=== PATIENT | male | born 1995 | race Caucasian/White ===

== ENCOUNTER 2017-02-17 20:31 | Emergency (ER) | payer BC, MEDICAID ==
[2017-02-17 22:47] VITALS: BP 125/79
--- NOTE | 2017-02-17 23:00 | EDM.PDOC ---
ED HPI GENERAL MEDICAL PROBLEM - General Chief Complaint: Bite:Animal, Insect Stated Complaint: DOG BITE HANDS Time Seen by Provider: 02/17/17 22:42 Source of Information: Reports: Patient, RN Notes Reviewed History Limitations: Reports: No Limitations - History of Present Illness INITIAL COMMENTS - FREE TEXT/NARRATIVE: Here with his girlfriend Chief complaint Dog bites to right hand History of present illness 21-year-old male who together with his girlfriend have a 5-year-old dog. He is 10 pounds, although he's not up-to-date with his immunizations he's not know to her dog does not have any exposure to wild animals. He always has been resistant to being extracted when he's hiding. Today he went under the bed, patient moves the bed to extract the bed to take him outside but the dog ended up biting him in the right hand. This occurred about 11 AM but he's had increasing pain and swelling and this prompted come to emergency because of concerns about infection. Last tetanus booster was a year ago. He works installing insulation Bilateral Hand Pain Score (Numeric/FACES): 4 - Related Data Allergies Allergy/AdvReac Type Severity Reaction Status Date / Time No Known Allergies Allergy Verified 02/17/17 22:36 Home Meds: Home Meds Amoxicillin/Potassium Clav [Augmentin 875-125 Tablet] 1 each PO BID #14 tablet 02/17/17 [Rx] PARoxetine HCl [Paxil] 20 mg PO DAILY 02/17/17 [History] Past Medical History - Past Health History Medical/Surgical History: Denies Medical/Surgical History Psychiatric History: Reports: Depression Social & Family History - Tobacco Use Smoking Status *Q: Current Some Day Smoker Years of Tobacco use: 1 Packs/Tins Daily: 1 - Caffeine Use Caffeine Use: Reports: Soda - Recreational Drug Use Recreational Drug Use: No ED ROS GENERAL - Review of Systems Review Of Systems: ROS reveals no pertinent complaints other than HPI. Skin: Reports: Wound (He has old wounds to both hands but the new wounds are on the thumb and index of the right hand) ED EXAM, ANIMAL BITE - Physical Exam Exam: See Below Exam Limited By: No Limitations General Appearance: Alert, No Apparent Distress, Other (Normal vital signs, looks well) Respiratory/Chest: No Respiratory Distress, No Accessory Muscle Use Cardiovascular: Normal Peripheral Pulses, Regular Rate, Rhythm Neurological: Alert, Oriented, Normal Cognition, Other (He has abrasions that are old from work on the dorsum of his right hand and abrasions from old dog bites on the dorsum of his left hand.On the base of his right thumb dorsal aspect of the proximal phalanx and of the right index dorsal aspect just proximal to the nailbed. These are all small but surrounded by erythema and mild swelling.) Skin Exam: Other (No lymphangitis or cellulitis other than the mild redness around the dog bite wounds described above) Lymphadenopathy: Bilateral: No Adenopathy Course - Vital Signs Last Recorded V/S: Last Vital Signs Temp 36.4 C 02/17/17 22:45 Pulse 71 02/17/17 22:45 Resp 14 02/17/17 22:45 BP 125/79 02/17/17 22:45 Pulse Ox 99 02/17/17 22:45 - Re-Assessments/Exams Free Text/Narrative Re-Assessment/Exam: 02/17/17 23:03 21-year-old male with new dog bite wounds to right hand this morning, they appear to be superficially infected. Departure - Departure Time of Disposition: 22:58 Disposition: Home, Self-Care 01 Condition: Good Clinical Impression: Dog bite of right hand Qualifiers: Encounter type: initial encounter Qualified Code(s): S61.451A - Open bite of right hand, initial encounter - Discharge Information Prescriptions: Amoxicillin/Potassium Clav [Augmentin 875-125 Tablet] 1 each PO BID #14 tablet Instructions: Animal Bite, [id number] Referrals: Josh Shaver [facility] [Primary Care Provider] - Forms: ED Department Discharge Additional Instructions: Get rechecked if there is increasing pain swelling red streaks up the arm or fever. There are mind that the wounds may look a little worse for 24 hours as the antibiotic starts working.
== END 2017-02-17 23:06 | disposition home or self-care (01) ==
LOC: JP.ED 20:31
DX: S61.451A Open bite of right hand, initial encounter (principal); F17.210 Nicotine dependence, cigarettes, uncomplicated; F32.9 Major depressive disorder, single episode, unspecified; W54.0XXA Bitten by dog, initial encounter
CPT/HCPCS: 99283

== ENCOUNTER 2021-03-02 12:09 | Emergency (ER) | payer MEDICAID ==
[2021-03-02 12:43] VITALS: BP 135/81; PULSE 109
--- NOTE | 2021-03-02 12:55 | EDM.PDOC ---
ED HPI GENERAL MEDICAL PROBLEM - General Chief Complaint: Fever Stated Complaint: FEVER,SORE THROAT Time Seen by Provider: 03/02/21 12:55 Source of Information: Reports: Patient, Family, RN Notes Reviewed History Limitations: Reports: No Limitations - History of Present Illness INITIAL COMMENTS - FREE TEXT/NARRATIVE: Adiel presents today for complaints of sore throat, pain with swallowing, headaches and fever for 3 days. He has tried use of OTC medications without any improvement in pain or swelling. He denies nausea, vomiting, abdominal pain, chills, fevers, difficulty b reathing, change in bowel/bladder or other concerns. Throat Pain Score (Numeric/FACES): 6 - Related Data Allergies Allergy/AdvReac Type Severity Reaction Status Date / Time No Known Allergies Allergy Verified 02/17/17 22:36 Home Meds: Home Meds Citalopram [Citalopram HBr] 20 mg PO DAILY 03/02/21 [History] Lisdexamfetamine Dimesylate [Vyvanse] 40 mg PO DAILY 03/02/21 [History] Past Medical History - Past Health History Medical/Surgical History: Denies Medical/Surgical History Psychiatric History: Reports: ADHD, Depression Social & Family History - Caffeine Use Caffeine Use: Reports: Coffee - Recreational Drug Use Recreational Drug Use: No ED ROS ENT - Review of Systems Review Of Systems: See Below Constitutional: Reports: No Symptoms HEENT: Reports: Throat Pain, Throat Swelling. Denies: Dental Pain, Ear Discharge, Ear Pain, Eye Discharge, Eye Pain, Hearing Loss, Nose Pain, Rhinitis, Sinus Problem, Vertigo, Vision Change Respiratory: Reports: No Symptoms Cardiovascular: Reports: No Symptoms Endocrine: Reports: No Symptoms GI/Abdominal: Reports: No Symptoms : Reports: No Symptoms Musculoskeletal: Reports: No Symptoms Skin: Reports: No Symptoms Neurological: Reports: No Symptoms Psychiatric: Reports: No Symptoms Hematologic/Lymphatic: Reports: No Symptoms Immunologic: Reports: No Symptoms ED EXAM, ENT - Physical Exam Exam: See Below Exam Limited By: No Limitations General Appearance: Alert, WD/WN, No Apparent Distress Eye Exam: Bilateral Eye: Normal Inspection, PERRL Ears: Normal External Exam, Normal Canal, Hearing Grossly Normal, Normal TMs Nose: Normal Inspection, Normal Mucousa, No Blood Mouth/Throat: Normal Gums, Normal Lips, Normal Teeth, Hoarse Voice, Muffled Voice, Pharyngeal Erythema, Throat Pain, Tonsillar Erythema, Tonsillar Exudates, Tonsillar Swelling, Uvular Edema, Other (bifircated uvula). No: Dental Tenderness, Dental Trauma, Drooling, Gum Swelling, Lip Swelling, Lip Ulcers, Peritonsillar Mass, Throat Swelling, Tongue Swelling Head: Atraumatic, Normocephalic Neck: Supple, Non-Tender, Full Range of Motion, Lymphadenopathy (R), Lymphadenopathy (L) Respiratory/Chest: No Respiratory Distress, Lungs Clear, Normal Breath Sounds, No Accessory Muscle Use, Chest Non-Tender. No: Crackles, Rales, Rhonchi, Wheezing, Stridor, Accessory Muscle Use, Retractions, Splinting Cardiovascular: Normal Peripheral Pulses, Regular Rate, Rhythm, No Edema, No Gallop, No Murmur, No Rub GI/Abdominal: Normal Bowel Sounds, Soft, Non-Tender, No Organomegaly, No Distention, No Mass. No: Guarding, Rigid, Rebound, Tender, Hepatomegaly, Splenomegaly (Male) Exam: Deferred Rectal (Males) Exam: Deferred Back: Normal Inspection, Full Range of Motion. No: CVA Tenderness (R), CVA Tenderness (L) Extremities: Normal Inspection, Normal Range of Motion, Non-Tender, No Pedal Edema, Normal Capillary Refill Neurological: Alert, Oriented, Normal Cognition, Normal Gait, No Motor/Sensory Deficits Psychiatric: Normal Affect, Normal Mood Skin: Warm, Dry, Intact, Normal Color, No Rash Lymphatic: Adenopathy (cervical and tonsilar) Course - Vital Signs Last Recorded V/S: Last Vital Signs Temp 36.6 C 03/02/21 12:41 Pulse 109 H 03/02/21 12:41 Resp 16 03/02/21 12:41 BP 135/81 03/02/21 12:41 Pulse Ox 98 03/02/21 12:41 - Orders/Labs/Meds Orders: Active Orders 24 hr Category Date Time Status CULTURE STREP A CONFIRMATION [RM] Stat Lab 03/02/21 12:45 Results STREP SCRN A RAPID W CULT CONF [] Stat Lab 03/02/21 12:45 Results Labs: Discussed negative strep screen. We will complete strep culture. Significant uvulitis of bifircated uvula, tonsillar exudates, erythema without abdominal pain or tenderness. We will treat for Uvulitis, Pharyngitis Patient and his mother in agreement with plan. Departure - Departure Time of Disposition: 13:17 Disposition: Home, Self-Care 01 Condition: Good Clinical Impression: Uvulitis, Pharyngitis - Discharge Information Instructions: Uvulitis Referrals: Judd Victor MD [Primary Care Provider] - Forms: ED Department Discharge Additional Instructions: You have been evaluated and treated for Uvulitis and tonsillitis. Take Prednisone 40mg by mouth once a day for swelling. Take amoxicillin 1000mg daily for 10 days for uvulitis/tonsillitis. Take acetaminophen (tylenol) 650mg by mouth three times a day for pain as needed. Can take ibuprofen 600mg by mouth three times a day as needed for pain. You can also take 25mg to 50mg benadry up to 3 times a day for swelling/discomfort - this will make you sleepy. Drink plenty of water and gatorade to stay hydrated. Return for any worsening, issues or concerns. Sepsis Event Note (ED) - Evaluation Sepsis Screening Result: Possible Sepsis Risk - Focused Exam Vital Signs: Vital Signs Temp Pulse Resp BP Pulse Ox 03/02/21 12:41 36.6 C 109 H 16 135/81 98 - Assessment/Plan Assessment:: Uvulitis, Pharyngitis Plan: Patient evaluated and treated for Uvulitis and tonsillitis. Take Prednisone 40mg by mouth once a day for swelling. Take amoxicillin 1000mg daily for 10 days for uvulitis/tonsillitis. Take acetaminophen (tylenol) 650mg by mouth three times a day for pain as needed. Can take ibuprofen 600mg by mouth three times a day as needed for pain. Drink plenty of water and gatorade to stay hydrated. Return for any worsening, issues or concerns.
== END 2021-03-02 13:38 | disposition home or self-care (01) ==
LOC: JP.ED 12:09
DX: K12.2 Cellulitis and abscess of mouth (principal); J02.9 Acute pharyngitis, unspecified
CPT/HCPCS: 87081; 87880-QW; 99283

== ENCOUNTER 2021-07-12 22:49 | Emergency (ER) | payer MEDICAID ==
[2021-07-12 23:12] VITALS: BP 139/66; PULSE 88
[2021-07-13 00:02] LABS: CORONAVIRUS COVID-19 NAA NEGATIVE (NEGATIVE)
--- NOTE | 2021-07-13 00:08 | EDM.PDOC ---
ED HPI GENERAL MEDICAL PROBLEM - General Chief Complaint: Fever Stated Complaint: possible covid Time Seen by Provider: 07/12/21 23:15 Source of Information: Reports: Patient History Limitations: Reports: No Limitations - History of Present Illness INITIAL COMMENTS - FREE TEXT/NARRATIVE: 26-year-old male who is fully vaccinated for Covid including a booster, has been exposed to Covid recently and now has a slight nasal congestion and decreased sense of smell. 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 No fevers or chills, no shortness of breath. Denies nausea or vomiting. Onset: Gradual Duration: Day(s): (Symptoms for the last 2 or 3 days) Associated Symptoms: Reports: Cough. Denies: Fever/Chills, Headaches Generalized Pain Score (Numeric/FACES): 3 - Related Data Allergies Allergy/AdvReac Type Severity Reaction Status Date / Time No Known Allergies Allergy Verified 07/12/21 23:05 Home Meds: Home Meds Citalopram [Citalopram HBr] 20 mg PO DAILY 03/02/21 [History] Lisdexamfetamine Dimesylate [Vyvanse] 40 mg PO DAILY 03/02/21 [History] busPIRone [Buspar] 5 mg PO BID 07/12/21 [History] Past Medical History - Past Health History Medical/Surgical History: Denies Medical/Surgical History Musculoskeletal History: Reports: Fracture Neurological History: Reports: Concussion Psychiatric History: Reports: ADHD, Anxiety, Depression Social & Family History - Tobacco Use Tobacco Use Status *Q: Current Every Day Tobacco User Years of Tobacco use: 4 Packs/Tins Daily: 1 - Caffeine Use Caffeine Use: Reports: Coffee - Recreational Drug Use Recreational Drug Use: Yes Drug Use in Last 12 Months: Yes Recreational Drug Type: Reports: Marijuana/Hashish Recreational Drug Use Frequency: Binges ED ROS GENERAL - Review of Systems Review Of Systems: See Below Constitutional: Reports: Malaise. Denies: Fever, Chills HEENT: Reports: Rhinitis, Other (Moderate loss of sense of smell) Respiratory: Reports: Cough GI/Abdominal: Reports: No Symptoms Musculoskeletal: Reports: No Symptoms Skin: Reports: No Symptoms ED EXAM, GENERAL - Physical Exam Exam: See Below Exam Limited By: No Limitations General Appearance: Alert, No Apparent Distress Eye Exam: Bilateral Eye: Normal Inspection Ears: Normal TMs Throat/Mouth: Normal Inspection Neck: No: Lymphadenopathy (R), Lymphadenopathy (L) Respiratory/Chest: No Respiratory Distress, Lungs Clear Cardiovascular: Regular Rate, Rhythm Course - Vital Signs Last Recorded V/S: Last Vital Signs Temp 99.1 F 07/12/21 23:05 Pulse 88 07/12/21 23:05 Resp 18 07/12/21 23:05 BP 139/66 07/12/21 23:05 Pulse Ox 99 07/12/21 23:05 - Orders/Labs/Meds Orders: Active Orders 24 hr Category Date Time Status Isolation [COMM] Stat Oth 07/12/21 23:44 Ordered Labs: Laboratory Tests 07/12/21 Range/Units 23:45 Influenza Type A RNA Negative (NEGATIVE) RSV RNA ([facility]) Negative (NEGATIVE) Influenza Type B RNA Negative (NEGATIVE) SARS-CoV-2 RNA ([facility]) Negative (NEGATIVE) - Re-Assessments/Exams Free Text/Narrative Re-Assessment/Exam: 07/13/21 01:34 4 Plex Covid is negative, patient has a mild likely viral respiratory illness. He was encouraged to continue with normal activity as tolerated and return if worsening. Departure - Departure Time of Disposition: 00:10 Disposition: Home, Self-Care 01 Clinical Impression: Viral URI - Discharge Information Instructions: Viral Respiratory Infection, [id number] Referrals: Judd Victor MD [Primary Care Provider] - Forms: ED Department Discharge Care Plan Goals: Continue activity and diet as tolerated, [id number] treatment of symptoms may be worthwhile otherwise recheck next week if not improving satisfactorily. Sepsis Event Note (ED) - Evaluation Sepsis Screening Result: No Definite Risk - Focused Exam Vital Signs: Vital Signs Temp Pulse Resp BP Pulse Ox 07/12/21 23:05 99.1 F 88 18 139/66 99 - My Orders Last 24 Hours: My Active Orders 07/12/21 23:44 Isolation [COMM] Stat - Assessment/Plan Last 24 Hours: My Active Orders 07/12/21 23:44 Isolation [COMM] Stat
== END 2021-07-13 00:10 | disposition home or self-care (01) ==
LOC: JP.ED 22:49
DX: J06.9 Acute upper respiratory infection, unspecified (principal); Z72.0 Tobacco use; Z20.822 Contact with and (suspected) exposure to COVID-19
CPT/HCPCS: 0241U; 99283

== ENCOUNTER 2021-07-23 11:44 | Emergency (ER) | payer MEDICAID ==
[2021-07-23 12:27] VITALS: BP 135/88; PULSE 97
== END 2021-07-23 15:38 | disposition home or self-care (01) ==
LOC: JP.ED 11:44
DX: F32.A Depression, unspecified (principal); S50.812A Abrasion of left forearm, initial encounter; F41.9 Anxiety disorder, unspecified; X78.9XXA Intentional self-harm by unspecified sharp object, initial encounter
CPT/HCPCS: 80305-QW; 99283

== ENCOUNTER 2024-05-04 20:39 | Emergency (ER) | payer MEDICAID ==
[2024-05-04 21:41] VITALS: BP 130/86; PULSE 64
[2024-05-04] MEDS: Diphtheria,Pertussis(Acell),Tetanus Vaccine 0.5 ML Syringe IM ONE (21:54)
[2024-05-04] MEDS: Bacitracin Oint 1 GM U/D Packet TOP ONE (21:54)
[2024-05-04] MEDS: Lidocaine 1% 5 ML VIAL INJECT ONE (21:54)
== END 2024-05-04 22:25 | disposition home or self-care (01) ==
LOC: JP.ED 20:39
DX: S61.210A Laceration without foreign body of right index finger without damage to nail, initial encounter (principal); F17.210 Nicotine dependence, cigarettes, uncomplicated; Z79.899 Other long term (current) drug therapy; Z23 Encounter for immunization; W26.8XXA Contact with other sharp object(s), not elsewhere classified, initial encounter
CPT/HCPCS: 12001; 90471; 90715; 99282-25; 99283

== ENCOUNTER 2024-07-09 23:21 | Emergency (ER) | payer BC, MEDICAID ==
[2024-07-09 23:36] VITALS: BP 120/78; PULSE 80
== END 2024-07-09 23:52 | disposition home or self-care (01) ==
LOC: JP.ED 23:21
DX: S20.212A Contusion of left front wall of thorax, initial encounter (principal); F17.210 Nicotine dependence, cigarettes, uncomplicated; Z79.899 Other long term (current) drug therapy; W00.0XXA Fall on same level due to ice and snow, initial encounter
CPT/HCPCS: 99283